=== PATIENT | female | born 1990 | race Caucasian/White ===

== ENCOUNTER 2019-11-23 15:49 | Emergency (ER) | payer BC, SELFPAY ==
[2019-11-23 16:13] VITALS: BP 172/95; PULSE 117; RESP 18; TEMP 36.3; O2SAT 97
[2019-11-23 16:23] VITALS: BP 132/75
--- NOTE | 2019-11-23 16:37 | ED.BACK ---
HPI - Back Pain/Injury General Chief Complaint: Back Pain/Injury Stated Complaint: back pain Source: patient Mode of arrival: ambulatory Limitations: no limitations History of Present Illness HPI Narrative: This is a 29-year-old female that presents with some back pain, across her lower back L4 and 5 distribution with some radiation and sciatica into her right leg, there is no saddle paresthesia is no bowel or bladder dysfunction she has a chronic history of lower back pain, has a history of morbid obesity has tried [id number] medications with minimal relief. There is no fever chills no shortness of breath no abdominal pain no diarrhea constipation no nausea vomiting. MD elicited complaint: back pain Pertinent past history: prior back pain Onset (ago): week(s) Timing: intermittent Severity: moderate Pain scale (0-10): 6 Similar Symptoms Previously: Yes Quality: dull and spasming Location: lumbar spine Radiation: right upper leg Exacerbating factors: movement and walking Relieving factors: immobilization and medication Related Data Home Medications Medication Instructions Recorded Confirmed buspirone 5 mg PO BID 11/23/19 11/23/19 Allergies Allergy/AdvReac Type Severity Reaction Status Date / Time No Known Allergies Allergy Verified 11/23/19 16:43 Review of Systems Review of Systems: All systems reviewed & are unremarkable except as noted in HPI and below PMFSH Past Medical History Medical History Chronic back pain Morbid obesity Social History Social History Gender identity (if verbalized by the patient): Female Exam Const: General: no acute distress Orientation/consciousness: patient oriented x3 HENMT: Head: normal to inspection Eyes: Pupils: Equal, round and reactive pupils present Neck: Neck: normal visual inspection Chest: Chest palpation & inspection: normal inspection of the chest Resp: Effort & Inspection: normal respiratory effort Auscultation: clear to auscultation bilaterally GI: Auscultation: normal bowel sounds Back/Spine/Pelvis: Back: no CVA tenderness Skin: General skin exam: normal color Rashes: no rashes Neuro: General: patient oriented x3, moves all extremities, no meningeal signs and no focal motor deficits Extrem: Other: L4 and 5 for right paravertebral tenderness with palpation with a positive straight leg raising test on the rig Psych: Appearance: grossly normal Mental Status: mental status grossly normal Thought content: Yes Normal thought content present Course Course Emergency Course: patient received IM Toradol, with significant relief with IM Toradol. Vital Signs Vital signs: Vital Signs Temperature 36.3 C L 11/23/19 16:13 Pulse Rate 117 H 11/23/19 16:13 Respiratory Rate 18 11/23/19 16:13 Blood Pressure 172/95 H 11/23/19 16:13 Pulse Oximetry 97 11/23/19 16:13 Temperature 36.3 C L 11/23/19 16:13 Pulse Rate 117 H 11/23/19 16:13 Respiratory Rate 18 11/23/19 16:13 Blood Pressure 132/75 11/23/19 16:23 Pulse Oximetry 97 11/23/19 16:13 Critical Care Time Critical Care Time Critical Care Time: No Discharge Plan Discharge Clinical Impression: Morbid obesity Sciatica Qualifiers: Laterality: right Qualified Code(s): M54.31 - Sciatica, right side Patient Disposition: Home, Self-Care Condition: Stable Instructions: Antibiotic Form, Back Pain (ED) Additional Instructions: Follow-up with primary care physician if symptoms persist or worsen. Prescriptions: New cyclobenzaprine 10 mg tablet 10 mg PO TID Qty: 20 RF: 0 tramadol [Ultram] 50 mg tablet 50 mg PO Q6H PRN (Reason: pain) Qty: 20 RF: 0 No Action buspirone 5 mg Tablet 5 mg PO BID RF: 0 Follow-up/Referrals: Marco Antonio,NICOLE Abdullahi [Primary Care Provider] - Time of Disposition: 16:51
[2019-11-23] MEDS: KETOROLAC (*BKC) 60 MG/2 ML VIAL IM (16:47)
[2019-11-23 16:59] VITALS: BP 138/82; PULSE 97; RESP 18; O2SAT 97
== END 2019-11-23 16:59 | disposition home or self-care (01) ==
PROVIDERS: Emergency Provider Emergency Medicine; PCP Nurse Practitioner
DX: M54.31 Sciatica, right side (principal); E66.01 Morbid (severe) obesity due to excess calories
CPT/HCPCS: 96372; 99283; J1885

== ENCOUNTER 2021-11-25 00:46 | Day surgery (SDC) | payer BC, SELFPAY ==
[2021-11-12 12:58] VITALS: BMI 84.6
--- NOTE | 2021-11-13 12:20 | PC.NURSE ---
11/13/21 Anesthesia (Dr. Hoover and Dr. Rg) aware of BMI, ok to proceed with procedure as scheduled.
[2021-11-25 08:02] VITALS: BP 155/81; PULSE 95; RESP 20; TEMP 36.3; O2SAT 97; BMI 81.8
[2021-11-25] MEDS: LACTATED RINGERS 1,000 ML 150 ML IV CONT (08:30)
--- NOTE | 2021-11-25 08:36 | P.PNAN_ITS ---
Anes - Initial Pre Proc Eval Procedure: Operation Date: 11/25/21 09:45 Proposed Procedures p Colonoscopy With Possible - Eduardo Parsons MD s [facility] Hemorrhoid Treatment - Eduardo Parsons MD Date/Time: 11/25/21 08:36 Surgeon: Eduardo Parsons MD Pre Op Diagnosis: blood in stool, diarrhea Patient Data Age: 31 Gender: F Height: 1.5 m Weight: 183.8 kg Last Vital Signs Temp 97.3 F L 11/25/21 08:02 Pulse 95 11/25/21 08:02 Resp 20 11/25/21 08:02 BP 155/81 H 11/25/21 08:02 Pulse Ox 97 11/25/21 08:02 O2 Del Method Room Air 11/25/21 08:02 Allergies Allergy/AdvReac Type Severity Reaction Status Date / Time No Known Allergies Allergy Verified 11/25/21 08:16 Home Medications Medication Instructions Recorded Confirmed Type buspirone 5 mg tablet 5 mg PO BID 11/23/19 11/25/21 History hydrocortisone 2.5 % topical cream 1 applic RECTAL DAILY PRN 10/20/21 11/25/21 Rx with perineal applicator hemorrhoids #30 grams (Anusol-HC) fluoxetine 20 mg capsule 20 mg PO DAILY 11/12/21 11/25/21 History Patient hx anesthesia problems: none Family hx anesthesia problems: none Results Review: All pre-operative results and documents have been reviewed as part of the pre- operative evaluation. [facility] Past Medical History Medical History (Updated 10/20/21 @ 12:42 by GERHARD Bentley) Chronic back pain Diarrhea Morbid obesity Social History Social History Smoking status: Never smoker Alcohol intake: current Drinks per week: 1 Substance use type: does not use Living arrangements: with family Gender identity (if verbalized by the patient): Female Spiritual care concerns: No Anes - Eval Final PreProcedure Day of Procedure 11/25/21 08:36 Patient weight: super morbidly obese Heart: regular rate and rhythm Lungs: clear to auscultation Airway: Mallampati scale class III Neurological: alert and oriented Last oral intake: >/= 8 hours ASA classification: IV Emergent: no Anesthetic plan: proceed Anesthesia type and monitoring: general GIVS and standard monitoring Results Review: All pre-operative results and documents have been reviewed as part of the pre- operative evaluation. Informed Consent: The patient's anesthetic plan and its attendant risks and benefits were discussed with the patient/family/POA. Questions were solicited and answers provided to the satisfaction of the patient/family/POA.
--- NOTE | 2021-11-25 08:59 | PM.HPGS ---
History of Present Illness History of Present Illness Consent: Risks, benefits, and alternatives have been discussed and questions answered. Patient agrees to proceed with procedure. Chief complaint: blood in stool, diarrhea Narrative: Oksana Danielle is a 31 year old female with intermittent rectal bleeding, never had colonoscopy Review of Systems Constitutional: Constitutional: Denies headache(s) and Denies weakness Eyes: Eyes: Denies blurry vision ENT: Reports Normal hearing present, Denies headache(s) and Denies neck pain Cardiovascular: Cardiovascular: Denies chest pain and Denies dyspnea Respiratory: Respiratory: Denies dyspnea Gastrointestinal: Gastrointestinal: Reports no additional gastrointestinal complaints Genitourinary: Genitourinary: Denies dysuria Musculoskeletal: Musculoskeletal: Denies neck pain Integumentary/Breasts: Skin/Breast: Denies dry skin Neurologic: Reports Normal hearing present, Denies headache(s) and Denies weakness Psychiatric: Psychiatric: Denies anxiety Endocrine: Endocrine: Denies change in body appearance Hematologic/Lymphatic: Hematologic/Lymphatic: Denies easy bleeding Allergic/Immunologic: Allergic/Immunologic: Denies urticaria PMFSH Past Medical History Medical History (Updated 11/25/21 @ 08:59 by Eduardo Parsons MD) Chronic back pain Diarrhea Morbid obesity Rectal bleeding Social History Social History Smoking status: Never smoker Alcohol intake: current Drinks per week: 1 Substance use type: does not use Living arrangements: with family Gender identity (if verbalized by the patient): Female Spiritual care concerns: No Meds Home Medications and Allergies Home Medications Medication Instructions Recorded Confirmed Type buspirone 5 mg tablet 5 mg PO BID 11/23/19 11/25/21 History hydrocortisone 2.5 % topical cream 1 applic RECTAL DAILY PRN 10/20/21 11/25/21 Rx with perineal applicator hemorrhoids #30 grams (Anusol-HC) fluoxetine 20 mg capsule 20 mg PO DAILY 11/12/21 11/25/21 History Allergies Allergy/AdvReac Type Severity Reaction Status Date / Time No Known Allergies Allergy Verified 11/25/21 08:16 Vital Signs Vital Signs - 24 hr 11/25/21 08:02 Temperature 97.3 F L Pulse Rate 95 Respiratory Rate 20 Blood Pressure 155/81 H Pulse Oximetry 97 Oxygen Delivery Room Air Exam Const: General: comfortable and no acute distress Other: morbid obese HENMT: General nose exam: Normal nares present Eyes: General: appearance normal, both eyes and all related structures Neck: Neck: no JVD Resp: Auscultation: clear to auscultation bilaterally Cardio: Rate: regular rate Rhythm: regular rhythm GI: Inspection: non-distended GI Palp: Yes Soft to palpation Skin: General skin exam: normal color Neuro: General: gait normal Speech: normal speech Extrem: General: normal to inspection Psych: Mental Status: mental status grossly normal Assessment and Plan Assessment and plan (1) Rectal bleeding: Code(s): K62.5 - Hemorrhage of anus and rectum Status: Acute Assessment and Plan: probably perianal, will do a colonoscopy and also IRC of internal hemorrhoids as needed
[2021-11-25 09:21] VITALS: BP 141/72; PULSE 83; RESP 36; O2SAT 97
[2021-11-25 09:31] VITALS: BP 130/77; PULSE 79; RESP 23; O2SAT 98
[2021-11-25 09:41] VITALS: BP 129/73; PULSE 80; RESP 25; O2SAT 97
== END 2021-11-25 09:49 | disposition home or self-care (01) ==
PROVIDERS: PCP Nurse Practitioner; Visit Provider Internal Medicine Gastroenterology
PROC: 0DJD8ZZ Inspection of Lower Intestinal Tract, Via Natural or Artificial Opening Endoscopic (ICD-10-PCS; CPT 45378; principal; 2021-11-25 09:45)
PROC: (CPT 46930; 2021-11-25 09:45)
DX: Z12.11 Encounter for screening for malignant neoplasm of colon (principal); D12.3 Benign neoplasm of transverse colon; K63.5 Polyp of colon; K92.1 Melena; K64.4 Residual hemorrhoidal skin tags; R19.7 Diarrhea, unspecified; E66.01 Morbid (severe) obesity due to excess calories; Z68.45 Body mass index [BMI] 70 or greater, adult
CPT/HCPCS: 45385; 88305; J2704; J7120

== ENCOUNTER 2022-03-02 14:53 | Emergency (ER) | payer BC, SELFPAY ==
[2022-03-02 15:02] VITALS: BP 131/98; PULSE 110; RESP 22; TEMP 37.4; O2SAT 100
--- NOTE | 2022-03-02 15:56 | ED.URI ---
HPI - URI/Sore Throat General Chief Complaint: Upper Respiratory Infection Stated Complaint: chills cough aches headache Time Seen by Provider: 03/02/22 15:56 Source: patient, RN notes reviewed and old records reviewed Mode of arrival: ambulatory Limitations: no limitations History of Present Illness HPI Narrative: 32-year-old female presents to the [facility] with cough, chills, body aches and headache since , 4 days. has taken Tylenol. Nothing further congestion. Is concerned for the body aches and chills. Related Data Home Medications Medication Instructions Recorded Confirmed buspirone 5 mg tablet 5 mg PO BID 11/23/19 03/02/22 fluoxetine 20 mg capsule 20 mg PO DAILY 11/12/21 03/02/22 Allergies Allergy/AdvReac Type Severity Reaction Status Date / Time No Known Allergies Allergy Verified 03/02/22 15:12 Review of Systems Review of Systems: All systems reviewed & are unremarkable except as noted in HPI and below Constitutional: Constitutional: Reports as per HPI, Reports body ache(s), Reports chills, Denies fever(s) and Reports headache(s) Eyes: Eyes: Reports no additional eye complaints ENT: Reports system reviewed and no additional complaints, except as documented and Denies headache(s) Cardiovascular: Cardiovascular: Reports no additional cardiovascular complaints, Denies chest pain and Denies dyspnea Respiratory: Respiratory: Reports as per HPI, Reports cough and Denies dyspnea Gastrointestinal: Gastrointestinal: Reports no additional gastrointestinal complaints and Denies abdominal pain Musculoskeletal: Musculoskeletal: Reports no additional musculoskeletal complaints Integumentary/Breasts: Skin/Breast: Reports system reviewed and no additional complaints, except as docu Neurologic: Reports system reviewed and no additional complaints, except as documented and Denies headache(s) Psychiatric: Psychiatric: Reports no additional psychiatric complaints Allergic/Immunologic: Allergic/Immunologic: Reports no additional allergic/immunologic complaints COUNTS INCLUDE 234 BEDS AT THE [facility] Past Medical History Medical History Chronic back pain Diarrhea Morbid obesity Rectal bleeding Family History Family History Grandparent Cancer Hypertension Heart disease Cerebrovascular accident Thyroid disorder Other Cancer Father Cancer Mother Cancer Social History Social History Smoking status: Never smoker Alcohol intake: current Drinks per week: 1 Substance use type: does not use Lack of Transportation: No Lack of Food: Never True Current Housing: I Have Housing Concerned About Future Housing: Decline to Answer Difficulty Paying Gas/Electric Bills: No Difficulty Paying for Meds: No Currently Unemployed: No Education: High School Diploma/GED Gender identity (if verbalized by the patient): Female Spiritual care concerns: No Comments At the time of my signature, I reviewed and agree with the nursing past medical, surgical, social, and family history. There is no relevant family history pertinent to the patient complaint. Exam Const: General: cooperative, healthy appearing, comfortable, no acute distress, well developed, alert and well nourished Nutritional Appearance: well nourished and obese morbidly obese Orientation/consciousness: patient oriented x3 Limitations: no limitations HENMT: Head: normal to inspection Ears: external ears normal Face/Nose/Sinus: Normal external nose present, Normal nares present, Normal nasal mucous membranes and turbinates present and normal facial exam Face and sinus: normal facial exam Mouth: Yes Normal oral and palatal mucosa present, Yes lip normal and Yes moist mucous membranes abnormal Throat: uvula midline, abnormal tonsil bilateral erythema and hypertrophy 2+ and postnasal drainage
== END 2022-03-02 16:30 | disposition home or self-care (01) ==
PROVIDERS: Emergency Provider Nurse Practitioner; PCP Nurse Practitioner
DX: J03.90 Acute tonsillitis, unspecified (principal)
CPT/HCPCS: 87081; 87804; 99213; G0463